=== PATIENT | female | born 2000 | race Caucasian/White ===

== ENCOUNTER 2022-09-23 14:57 | Outpatient (CLI) | payer OTHER | END 2022-09-23 23:59 | disposition critical access hospital (66) | LOC: EMS 14:57 | DX: R45.851 Suicidal ideations (principal) | CPT/HCPCS: A0425; A0429 ==

== ENCOUNTER 2022-09-23 15:49 | Emergency (ER) | payer OTHER ==
--- NOTE | 2022-09-23 15:57 | ED Physician Documentation ---
History of Present Illness - Stated complaint Stated Complaint: SI - History obtained from History obtained from: Patient - Additonal information Additional information: 21-year-old history of depression anxiety, takes occasional Xanax for same, otherwise not taking any medications. No history of drug or alcohol use. Her is out of town on deployments and she is feeling very anxious and depressed. She had some thoughts of overdosing on all sleeping pills. Currently not suicidal. PD PAST MEDICAL HISTORY - Present Medications Home Medications: Ambulatory Orders Medication Instructions Recorded Confirmed Alprazolam [Xanax] 1 mg PO DAILY PRN 09/23/22 09/23/22 - Allergies Allergies/Adverse Reactions: Allergies Allergy/AdvReac Type Severity Reaction Status Date / Time No Known Drug Allergies Allergy Verified 09/23/22 16:06 PD ED PE NORMAL - Vitals Vital signs reviewed: Yes - General General: Alert and oriented X 3, No acute distress - HEENT HEENT: PERRL, EOMI - Neck Neck: Supple, no meningeal sign, No bony TTP - Cardiac Cardiac: RRR, No murmur - Respiratory Respiratory: No respiratory distress, Clear bilaterally - Abdomen Abdomen: Non tender - Derm Derm: No rash - Neuro Neuro: Alert and oriented X 3, Normal speech Eye Opening: Spontaneous Motor: Obeys Commands Verbal: Oriented GCS Score: 15 - Psych Psych: Normal mood, Normal affect Results - Vitals Vitals: Vital Signs - 24 hr 09/23/22 16:01 Temperature 36.6 C Heart Rate 82 Respiratory 16 Rate Blood Pressure 121/72 O2 Saturation 100 Oxygen O2 Source Room air - Labs Labs: Laboratory Tests 09/23/22 09/23/22 09/23/22 16:27 16:28 16:28 WBC 6.7 RBC 4.76 Hgb 14.7 Hct 44.7 MCV 93.9 MCH 30.9 MCHC 32.9 RDW 12.4 Plt Count 165 MPV 10.7 Neut # (Auto) 4.2 Lymph # (Auto) 2.0 [place] # (Auto) 0.4 Eos # (Auto) 0.1 Baso # (Auto) 0.1 Absolute Nucleated RBC 0.00 Nucleated RBC % 0.0 Sodium 139 Potassium 3.5 Chloride 103 Carbon Dioxide 26 Anion Gap 10.0 BUN 9 Creatinine 0.7 Estimated GFR (MDRD) 105 Glucose 87 Calcium 9.4 Total Bilirubin 1.2 H AST 23 ALT 15 Alkaline Phosphatase 37 L Total Protein 7.8 Albumin 4.5 Globulin 3.3 Albumin/Globulin Ratio 1.4 Lipase 34 TSH Urine Color YELLOW Urine Clarity CLEAR Urine pH 7.0 Ur Specific Bard 1.010 Urine Protein NEGATIVE Urine Glucose (UA) NEGATIVE Urine Ketones NEGATIVE Urine Occult Blood NEGATIVE Urine Nitrite NEGATIVE Urine Bilirubin NEGATIVE Urine Urobilinogen 0.2 (NORMAL) Ur Leukocyte Esterase NEGATIVE Ur Microscopic Review NOT INDICATED Urine Culture Comments NOT INDICATED Urine HCG, Qual NEGATIVE Salicylates < 6.0 Urine Opiates Screen NEGATIVE Ur Oxycodone Screen NEGATIVE Urine Methadone Screen NEGATIVE Ur Propoxyphene Screen NEGATIVE Acetaminophen < 10 L Ur Barbiturates Screen NEGATIVE Ur Tricyclics Screen NEGATIVE Ur Phencyclidine Scrn NEGATIVE Ur Amphetamine Screen NEGATIVE U Methamphetamines Scrn NEGATIVE U Benzodiazepines Scrn POSITIVE H Urine Cocaine Screen NEGATIVE U Cannabinoids Screen NEGATIVE Ethyl Alcohol < 5.0 SARS-CoV-2 (PCR) 09/23/22 09/23/22 16:28 16:30 WBC RBC Hgb Hct MCV MCH MCHC RDW Plt Count MPV Neut # (Auto) Lymph # (Auto) [place] # (Auto) Eos # (Auto) Baso # (Auto) Absolute Nucleated RBC Nucleated RBC % Sodium Potassium Chloride Carbon Dioxide Anion Gap BUN Creatinine Estimated GFR (MDRD) Glucose Calcium Total Bilirubin AST ALT Alkaline Phosphatase Total Protein Albumin Globulin Albumin/Globulin Ratio Lipase TSH 0.75 Urine Color Urine Clarity Urine pH Ur Specific Bard Urine Protein Urine Glucose (UA) Urine Ketones Urine Occult Blood Urine Nitrite Urine Bilirubin Urine Urobilinogen Ur Leukocyte Esterase Ur Microscopic Review Urine Culture Comments Urine HCG, Qual Salicylates Urine Opiates Screen Ur Oxycodone Screen Urine Methadone Screen Ur Propoxyphene Screen Acetaminophen Ur Barbiturates Screen Ur Tricyclics Screen Ur Phencyclidine Scrn Ur Amphetamine Screen U Methamphetamines Scrn U Benzodiazepines Scrn Urine Cocaine Screen U Cannabinoids Screen Ethyl Alcohol SARS-CoV-2 (PCR) NOT DETECTED PD Medical Decision Making - ED course Complexity details: reviewed results (CBC reviewed and normal. CMP reviewed and unremarkable. Urinalysis normal. Tylenol, aspirin, and alcohol levels normal. Urine tox positive for benzodiazepines, not unexpected as she takes Xanax. TSH reviewed and normal. COVID test negative.) ED course: 21-year-old woman presents voluntarily with suicidal ideation. Seen by social work and accepted to [facility]. She will be going tomorrow morning. She is medically stable for psychiatric transfer. Cobras were completed. Departure - Departure Disposition: 65 Psych Hosp/Unit DC/Xfer Clinical Impression: Depressive disorder, Suicidal ideation Condition: Stable
[2022-09-23 16:32] LABS: MUDS CUTOFF CONCENTRATIONS CUTOFF CONC BELOW:
[2022-09-23 16:34] LABS: BASOPHILS # (AUTO) 0.1 10^3/uL (0.0-0.1); BASOPHILS % (AUTO) 0.7 %; EOSINOPHILS # (AUTO) 0.1 10^3/uL (0.0-0.7); EOSINOPHILS % (AUTO) 1.3 %; HCT - HEMATOCRIT 44.7 % (37.0-47.0); HGB - HEMOGLOBIN 14.7 g/dL (12.0-16.0); LYMPHOCYTES % (AUTO) 29.5 %; MEAN CORPUSCULAR HEMOGLOBIN 30.9 pg (27.0-31.0); MEAN CORPUSCULAR HGB CONC 32.9 g/dL (32.0-36.0); MEAN CORPUSCULAR VOLUME 93.9 fL (81.0-99.0); MEAN PLATELET VOLUME 10.7 fL (7.9-10.8); MONOCYTES # (AUTO) 0.4 10^3/uL (0.0-1.0); MONOCYTES % (AUTO) 5.7 %; NEUTROPHILS # (AUTO) 4.2 10^3/uL (1.5-6.6); NEUTROPHILS % (AUTO) 62.7 %; PLT - PLATELET COUNT 165 10^3/uL (130-450); RED BLOOD COUNT 4.76 10^6/uL (4.20-5.40); RED CELL DISTRIBUTION WIDTH 12.4 % (12.0-15.0); WHITE BLOOD COUNT 6.7 x10^3/uL (4.8-10.8)
[2022-09-23 16:36] LABS: BILIRUBIN,URINE NEGATIVE (NEGATIVE); GLUCOSE, URINE (UA) NEGATIVE (NEGATIVE); KETONES,URINE (UA) NEGATIVE (NEGATIVE); LEUKOCYTE ESTERASE, URINE NEGATIVE (NEGATIVE); NITRITE,URINE NEGATIVE (NEGATIVE); OCCULT BLOOD,URINE NEGATIVE (NEGATIVE); PROTEIN,URINE NEGATIVE (NEGATIVE); UROBILINOGEN,URINE 0.2 (NORMAL) E.U./dL (NORMAL)
[2022-09-23 16:38] LABS: CLARITY,URINE CLEAR (CLEAR); HCG UR QUAL NEGATIVE
[2022-09-23 16:48] LABS: AMPHETAMINE SCREEN,URINE NEGATIVE (NEGATIVE); BARBITURATE SCREEN,UR NEGATIVE (NEGATIVE); BENZODIAZEPINES SCREEN, URINE POSITIVE (NEGATIVE); COCAINE SCREEN URINE NEGATIVE (NEGATIVE); METHADONE SCREEN, URINE NEGATIVE (NEGATIVE); METHAMPHETAMINES SCREEN, URINE NEGATIVE (NEGATIVE); OPIATE SCREEN, URINE NEGATIVE (NEGATIVE); OXYCODONE SCREEN, URINE NEGATIVE (NEGATIVE); PROPOXYPHENE SCREEN, URINE NEGATIVE (NEGATIVE); THC CANNABINOID SCREEN, URINE NEGATIVE (NEGATIVE); TRICYCLIC ANTIDEPRESSANT,URINE NEGATIVE (NEGATIVE)
[2022-09-23 16:54] LABS: ACETAMINOPHEN < 10 ug/mL (10-30); ALBUMIN 4.5 g/dL (3.2-5.5); ALBUMIN/GLOBULIN RATIO 1.4 (1.0-2.2); ALKALINE PHOSPHATASE 37 IU/L (42-121); ALT ALANINE AMINOTRANSFERASE 15 IU/L (10-60); AST ASPARTATE AMINOTRANSFERASE 23 IU/L (10-42); BILIRUBIN,TOTAL 1.2 mg/dL (0.2-1.0); BUN - BLOOD UREA NITROGEN 9 mg/dL (6-20); CALCIUM 9.4 mg/dL (8.5-10.3); CARBON DIOXIDE - CO2 26 mmol/L (21-32); CHLORIDE 103 mmol/L (101-111); CREATININE 0.7 mg/dL (0.4-1.0); ETOH - ETHANOL < 5.0 mg/dL; GFR - MDRD 105 (>89); GLUCOSE 87 mg/dL (70-100); LIPASE 34 U/L (22-51); POTASSIUM 3.5 mmol/L (3.5-5.0); SALICYLATE < 6.0 mg/dL; SODIUM 139 mmol/L (135-145); TOTAL PROTEIN 7.8 g/dL (6.7-8.2)
[2022-09-23] MEDS ORDERED: IBUPROFEN 600 MG TABLET PO STA (18:53)
[2022-09-23] MEDS ORDERED: ACETAMINOPHEN 325 MG TABLET PO STA (23:49)
[2022-09-24 15:07] VITALS: BP 102/65
== END 2022-09-24 15:15 ==
LOC: ED 15:49
DX: F32.A Depression, unspecified (principal); R45.851 Suicidal ideations; Z20.822 Contact with and (suspected) exposure to COVID-19
CPT/HCPCS: 36415; 80053; 80306; 80307; 80320; 80329; 81003; 81025; 83690; 84443; 85025; 87635; 99285; A9270; 81001; 87086

== ENCOUNTER 2022-11-13 13:48 | Emergency (ER) | payer OTHER ==
[2022-11-13 14:07] VITALS: BP 133/74
== END 2022-11-13 15:58 | disposition left against medical advice (07) ==
LOC: ED 13:48
DX: N93.9 Abnormal uterine and vaginal bleeding, unspecified (principal)

== ENCOUNTER 2023-02-20 12:54 | Outpatient (CLI) | payer OTHER ==
--- NOTE | 2023-02-20 13:52 | Ultrasound Report ---
PROCEDURE: Pelvic w/Transvaginal INDICATIONS: IUD, PELVIC PAIN, HEAVY MENTRUATION, DEEP DYSPAREU TECHNIQUE: Real-time scanning was performed of the pelvic organs, with image documentation. Unable to perform tr ansvaginal component of this examination. COMPARISON: None. FINDINGS: Uterus: Uterus is anteverted and normal in size at 8.1 x 4.0 x 6.3 cm. The myometrium is homogeneou s. The endometrium measures 12 mm in combined thickness. An IUD is visualized within the endometria l cavity. Ovaries: The right ovary measures 2.8 x 1.7 x 2.1 cm, with a calculated ovarian volume of 5.2 cc. T he left ovary measures 4.1 x 3.2 x 2.6 cm, with a calculated ovarian volume of 17.5 cc. There are 2 s imple cyst in the left ovary with one measuring 2.0 x 2.4 x 2.7 cm and the second measuring 2.4 x 1.3 x 1.9 cm. The ovaries have a normal sonographic appearance. Less than 12 follicles can be seen in e ach ovary. No adnexal masses are seen. No cystic lesions measuring greater than 3 cm. Other: No pathologic free abdominal or pelvic fluid. IMPRESSION: IUD in place within the endometrial cavity. Otherwise, unremarkable sonographic evaluation of the pelvis. No acute sonographic abnormality seen. Reviewed by: Anil Chua MD on 02/20/2023 12:50 PM OCTAVIO Approved by: Anil Chua MD on 02/20/2023 12:50 PM OCTAVIO Station ID: [id number]
== END 2023-02-20 12:55 | disposition home or self-care (01) ==
LOC: DI 12:54
PROVIDERS: ATTEND Nurse Practitioner
DX: R10.2 Pelvic and perineal pain (principal); Z97.5 Presence of (intrauterine) contraceptive device; N92.0 Excessive and frequent menstruation with regular cycle; N94.12 Deep dyspareunia; M54.50 Low back pain, unspecified

== ENCOUNTER 2023-02-24 08:00 | Outpatient (CLI) | payer OTHER ==
[2023-02-24 20:37] LABS: BACTERIAL VAGINOSIS DNA NEGATIVE (NEGATIVE); CANDIDA GROUP DNA NEGATIVE (NEGATIVE); CANDIDA KRUSEI DNA NEGATIVE (NEGATIVE); TRICHOMONAS VAGINALIS DNA NEGATIVE (NEGATIVE)
[2023-02-24 20:38] LABS: CANDIDA GLABRATA DNA NEGATIVE (NEGATIVE)
[2023-02-24 22:00] LABS: CHLAMYDIA TRACHOMATIS DNA NEGATIVE (NEGATIVE); NEISSERIA GONORRHOEAE DNA NEGATIVE (NEGATIVE)
== END 2023-02-24 23:59 | disposition home or self-care (01) ==
LOC: LAB.WC 08:00
PROVIDERS: ATTEND Nurse Practitioner
DX: R10.2 Pelvic and perineal pain (principal); N92.0 Excessive and frequent menstruation with regular cycle; N94.12 Deep dyspareunia
CPT/HCPCS: 81514; 81599; 87491; 87591; 87661

== ENCOUNTER 2023-02-24 14:46 | Outpatient (CLI) | payer OTHER ==
--- NOTE | 2023-02-24 15:47 | CT Report ---
PROCEDURE: ABDOMEN/PELVIS WO INDICATIONS: PRESENCE OF IUD,HEAVY MENSTRUATION,PELVIC PAIN TECHNIQUE: A CT scan of the abdomen and pelvis was performed without the use of intravenous contrast. Images we re recorded and evaluated at appropriate window settings. Reformats: coronal and sagittal. For radiat ion dose reduction, the following was used: automated exposure control, adjustment of mA and/or kV ac cording to patient size. COMPARISON: None. FINDINGS: Image quality: Excellent. Lung bases and heart: Unremarkable. Liver: No solid mass. Gallbladder and biliary tree: No radiopaque stones or wall thickening. No biliary dilation. Spleen: No splenomegaly. Pancreas: No pancreatic ductal dilation. Adrenals: No adrenal nodule. Kidneys and ureters: No hydronephrosis. No renal cystic lesion which requires follow up. No solid mas s. Bowel and peritoneum: No bowel distension. No pathologic free fluid. Lymph nodes: No central or retroperitoneal adenopathy. Vessels: No infrarenal aortic aneurysm. PELVIS Reproductive organs: IUD appears appropriately positioned within the endometrial cavity. Bladder: No wall thickness, accounting for underdistention. Pelvic lymph nodes: No pelvic adenopathy by size criteria. Bones: No aggressive osseous abnormality. Other: No significant ventral or inguinal hernia. IMPRESSION: No findings to explain the patient's pelvic pain. IUD appears appropriately positioned within the howard tral uterus. Reviewed by: Pino Larson on 02/24/2023 3:45 PM PDT Approved by: Pino Larson on 02/24/2023 3:45 PM PDT Station ID: [id number]
== END 2023-02-24 14:47 | disposition home or self-care (01) ==
LOC: DI 14:46
PROVIDERS: ATTEND Nurse Practitioner
DX: N92.0 Excessive and frequent menstruation with regular cycle (principal); R10.2 Pelvic and perineal pain; R10.9 Unspecified abdominal pain; Z97.5 Presence of (intrauterine) contraceptive device; N94.12 Deep dyspareunia
CPT/HCPCS: 81514; 81599; 87491; 87591; 87661

== ENCOUNTER 2023-03-01 00:11 | Emergency (ER) | payer OTHER ==
--- NOTE | 2023-03-01 00:23 | ED Physician Documentation ---
PD HPI NVD - Stated complaint Stated Complaint: NAUSEA/EPIGASTRIC PX - Chief complaint Chief Complaint: Abd Pain - History obtained from History obtained from: Patient - Additonal information Additional information: HPI from patient. 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 The patient had just taken her nighttime medications with water. Pain is worse with deep breath in/inspiration. No ameliorating factors. Other symptoms include nausea and vomiting, with bright red blood in initial emesis, with decreasing amounts with subsequent episodes; no blood clots noted per patient. She has h/o GERD but does not feel tonight's symptoms have any similarity to her previous GERD-related symptoms. She has had recent tests in outpatient setting (over past week) for pelvic pain/vaginal bleeding; she says tonight's symptoms are unrelated to what led to the outpatient testing (pelvic US, CT A/P). Review of Systems Constitutional: reports: Reviewed and negative Cardiac: reports: Chest pain / pressure. denies: Palpitations, Pedal edema, Calf pain Respiratory: reports: Dyspnea (waxing and waning in proportion to pain). denies: Cough, Hemoptysis, Wheezing GI: reports: Nausea, Vomiting, Hematemesis. denies: Abdominal Pain PD PAST MEDICAL HISTORY - Past Medical History Past Medical History: Yes Psych: Depression, Anxiety, Bipolar disorder, Post traumatic stress disorder, Other Musculoskeletal: Scoliosis - Past Surgical History Past Surgical History: No - Present Medications Home Medications: Ambulatory Orders Medication Instructions Recorded Confirmed Sertraline [Zoloft] 25 mg PO DAILY 11/13/22 03/01/23 hydrOXYzine pamoate [Hydroxyzine 50 mg PO DAILY PRN 11/13/22 03/01/23 Pamoate] Lidocaine Viscous 2% [Xylocaine 10 ml MM Q4H PRN #100 ml 03/01/23 Viscous 2%] Norelgestromin/Ethin.estradiol 1 each TD 03/01/23 [Zafemy 150-35 Mcg/Day Patch] QUEtiapine [SEROquel] 25 mg PO QPM 03/01/23 03/01/23 traMADol [Ultram] 50 - 100 mg PO Q6H PRN #20 tablet 03/01/23 - Allergies Allergies/Adverse Reactions: Allergies Allergy/AdvReac Type Severity Reaction Status Date / Time No Known Drug Allergies Allergy Verified 03/01/23 00:21 - Social History Does the pt smoke?: No Smoking Status: Never smoker Does the pt drink ETOH?: No Does the pt have substance abuse?: No - Immunizations Immunizations are current?: Yes - POLST Patient has POLST: No PD ED PE NORMAL - Vitals Vital signs reviewed: Yes - General General: Alert and oriented X 3, Well developed/nourished, Other (appears uncomfortable (painful distress) at times) - Cardiac Cardiac: RRR, No murmur, No gallop, No rub - Respiratory Respiratory: No respiratory distress, Clear bilaterally - Abdomen Abdomen: Soft, Non tender, Non distended - Extremities Extremities: No edema Results - Vitals Vitals: Oxygen O2 Source Room air - Labs Labs: Laboratory Tests 03/01/23 03/01/23 01:16 01:16 WBC 5.6 RBC 4.40 Hgb 13.6 Hct 41.4 MCV 94.1 MCH 30.9 MCHC 32.9 RDW 12.0 Plt Count 164 MPV 10.4 Neut # (Auto) 2.9 Lymph # (Auto) 2.2 [place] # (Auto) 0.4 Eos # (Auto) 0.2 Baso # (Auto) 0.0 Absolute Nucleated RBC 0.00 Nucleated RBC % 0.0 Sodium 136 Potassium 3.7 Chloride 106 Carbon Dioxide 28 Anion Gap 2.0 L BUN 9 Creatinine 0.8 Estimated GFR (MDRD) 89 Glucose 72 L Calcium 9.2 Total Bilirubin 0.5 AST 20 ALT 11 Alkaline Phosphatase 33 L Total Protein 6.6 Albumin 4.2 Globulin 2.4 Albumin/Globulin Ratio 1.8 Lipase 45 - Rads (name of study) CTA chest Relevant Findings:: Prelim report reviewed, See rad report PD Medical Decision Making - ED course Complexity details: reviewed old records (I reviewed results of recent outpatient testing (pelvic US, CT A/P, BV/STD panel); no remarkable nor di agnostic findings on these tests), reviewed results, re-evaluated patient, considered differential, d/w patient ED course: No concerning nor diagnostic findings on tonight's tests including CBC, ER abdominal panel, and CTA chest. Though unlikely, diagnoses considered include PE, aortic dissection, mitch-mcfarland tear, boerhaave's syndrome; CTA chest results strongly suggest against these diagnoses at this time. Timing of symptom onset would be c/w food bolus impaction but given that she had just taken her medications (albeit a number of medications at once), this would be very unlikely to cause esophageal obstruction. Timing of onset is too rapid to suggest effect and/or side effect of medications. The cause of patient's symptoms is not apparent at this time. She is given 1 liter NS , 4mg IV zofran, 1 mg IV dilaudid, and 40mg IVP protonix. On reevaluation, she is sleeping, easily awoken to verbal. She reports excellent symptom relief with these interventions. Results d/w patient. She is given tramadol followed by PO viscous lidocaine/maalox prior to discharge for mild, residual discomfort. Rx for tramadol and viscous lidocaine e-prescribed. Return precautions reviewed. Departure - Departure Disposition: 01 Home, Self Care Clinical Impression: Vomiting Qualifiers: Vomiting type: hematemesis Nausea presence: with nausea Qualified Code(s): K92.0 - Hematemesis Condition: Good Instructions: ED Bleed UGI Stable Follow-Up: Papito Renteria MD [Primary Care Provider] - Prescriptions: traMADol [Ultram] 50 - 100 mg PO Q6H PRN #20 tablet PRN Reason: Pain >8 Lidocaine Viscous 2% [Xylocaine Viscous 2%] 10 ml MM Q4H PRN #100 ml PRN Reason: Abdominal Pain Comments: There were no concerning nor diagnostic findings on tonight's tests, including the blood tests and the CT scan of your chest. The cause of your symptoms is not apparent at this time. Possible causes of your symptoms that would not show on ER tests include gastritis (inflammation of the lining of the stomach), gastric (stomach) ulcer, esophagitis (inflammation of the esophagus). Follow up with your primary care provider, next available appointment, for reevaluation. Further tests might be needed (such as upper endoscopy), particularly if your symptoms persist or are recurrent. I have sent I have electronically submitted prescriptions for tramadol (opiate/narcotic pain medication) and viscous lidocaine (numbing medication for the gastrointestinal tract) to the [facility] in [place]. You should take omeprazole once per day for two weeks. This is an [id number]-uosqbks medication (no prescription is necessary). I am prescribing a short course of narcotic pain medication for you. These are potentially dangerous and addictive medications that should be used carefully. These medications may constipate you. Take an ecfd-vpc-xrradzc stool softener (docusate) twice daily with plenty of water while taking these medications. If you go 24 hours without a bowel movement, take [id number] miralax, per package instructions. Do not drink or drive while taking these medications. If you received narcotic or sedating medications while in the emergency department, do not drive for 24 hours. Store this medication in a safe, secure place and out of reach of children. It is a violation of federal law to give or sell this medication to another person or to use in a manner other than prescribed. The ED will not refill narcotic prescriptions, including prescriptions lost or stolen. To dispose of unwanted medications: 1. [facility] at [address] in [place] has a medication drop box. They accept prescription medications (in pill form) Wednesday through Wednesday 9:00 a.m. to 5:00 p.m. 2. The [facility] accepts prescription medications (in pill form only) for disposal year round. Call for more information. 3. Contact the [facility] for the next [facility] sponsored prescription drug collection event. , [phone], or [phone] Forms: PCP List Discharge Date/Time: 03/01/23 04:11
[2023-03-01] MEDS ORDERED: SODIUM CHLORIDE 0.9% 1,000 ML IV STA (01:03)
[2023-03-01] MEDS ORDERED: HYDROmorphone 1 MG/ML CARPUJECT IVP STA (01:03)
[2023-03-01] MEDS ORDERED: ONDANSETRON 4 MG/2 ML VIAL IVP STA (01:03)
[2023-03-01] MEDS ORDERED: iohexoL-300 100 ML VIAL ONE (01:14)
[2023-03-01 01:21] LABS: BASOPHILS % (AUTO) 0.5 %; EOSINOPHILS # (AUTO) 0.2 10^3/uL (0.0-0.7); EOSINOPHILS % (AUTO) 3.9 %; HCT - HEMATOCRIT 41.4 % (37.0-47.0); HGB - HEMOGLOBIN 13.6 g/dL (12.0-16.0); LYMPHOCYTES # (AUTO) 2.2 10^3/uL (1.5-3.5); LYMPHOCYTES % (AUTO) 38.5 %; MEAN CORPUSCULAR HEMOGLOBIN 30.9 pg (27.0-31.0); MEAN CORPUSCULAR HGB CONC 32.9 g/dL (32.0-36.0); MEAN CORPUSCULAR VOLUME 94.1 fL (81.0-99.0); MEAN PLATELET VOLUME 10.4 fL (7.9-10.8); MONOCYTES # (AUTO) 0.4 10^3/uL (0.0-1.0); MONOCYTES % (AUTO) 6.2 %; NEUTROPHILS # (AUTO) 2.9 10^3/uL (1.5-6.6); NEUTROPHILS % (AUTO) 50.5 %; PLT - PLATELET COUNT 164 10^3/uL (130-450); WHITE BLOOD COUNT 5.6 x10^3/uL (4.8-10.8)
[2023-03-01] MEDS ORDERED: PANTOPRAZOLE 40 MG VIAL IVP STA (01:28)
[2023-03-01 01:39] LABS: ALBUMIN 4.2 g/dL (3.2-5.5); ALBUMIN/GLOBULIN RATIO 1.8 (1.0-2.2); BILIRUBIN,TOTAL 0.5 mg/dL (0.2-1.0); CALCIUM 9.2 mg/dL (8.5-10.3); CREATININE 0.8 mg/dL (0.6-1.3); POTASSIUM 3.7 mmol/L (3.5-4.5); TOTAL PROTEIN 6.6 g/dL (6.4-8.9)
[2023-03-01] MEDS ORDERED: iohexoL-300 100 ML VIAL IVP ONE (02:08)
[2023-03-01] MEDS ORDERED: LIDOCAINE VISCOUS 2% 15 ML ORAL SYRINGE MM STA (03:48)
[2023-03-01] MEDS ORDERED: traMADol 50 MG TABLET PO STA (03:48)
[2023-03-01] MEDS ORDERED: MAG HYDROX/AL HYDROX/SIMETH 30 ML UDC PO STA (03:48)
[2023-03-01 04:15] VITALS: BP 118/62
--- NOTE | 2023-03-01 08:17 | CT Report ---
PROCEDURE: ANGIO CHEST W/WO INDICATIONS: pleuritic chest pain, dyspnea CONTRAST: 100 ML OMNI 300 TECHNIQUE: After the administration of intravenous contrast, 2 mm axial images were acquired from the pulmonary apices to the posterior costophrenic angles during the arterial phase. In addition, 1 mm lung kernel and 5 mm soft tissue kernel reconstructions were performed. 3-dimensional coronal oblique maximum int ensity projection (MIP) reformats, 8 mm axial MIP, and 5 mm coronal and sagittal MPR reformats were t hen performed through the thorax. For radiation dose reduction, the following was used: automated exp osure control, adjustment of mA and/or kV according to patient size. COMPARISON: None FINDINGS: Image quality: Excellent. Large vessels: No filling defects within the opacified pulmonary arteries, accounting for motion and contrast timing. No evidence of acute aortic syndrome or aortic aneurysm. Lungs and pleura: No consolidation. No pleural effusions. No pneumothorax. Central and peripheral airways are normal caliber without bronchial wall thickening or bronchiectasis . No suspicious lung nodules or masses. Mediastinum: Heart size is normal. No pericardial effusion. No large vessel abnormality. Circumferent ial thickening of the esophagus throughout its course. No hilar or mediastinal adenopathy. No hiatal hernia. Chest wall and lower neck: Thyroid is unremarkable. No axillary or supraclavicular adenopathy by size . Bones: No aggressive osseous abnormality. Upper Abdomen: Unremarkable. IMPRESSION: 1. No pulmonary embolus. 2. Diffuse circumferential esophageal wall thickening may indicate esophagitis, most commonly due to reflux, also possibly due to irritation from vomiting. 3. Final interpretation concordant with preliminary report. Reviewed by: Sara Yoon MD on 03/01/2023 8:15 AM PDT Approved by: Sara Yoon MD on 03/01/2023 8:15 AM PDT Station ID: [id number]
== END 2023-03-01 04:11 | disposition home or self-care (01) ==
LOC: ED 00:11
DX: R07.9 Chest pain, unspecified (principal); K92.0 Hematemesis
CPT/HCPCS: 36415; 71275; 80053; 83690; 85025; 96374; 96375; 99284; A9270; J1170; Q9967

== ENCOUNTER 2023-03-03 22:26 | Outpatient (CLI) | payer OTHER | END 2023-03-03 23:59 | disposition critical access hospital (66) | LOC: EMS 22:26 | DX: R20.0 Anesthesia of skin (principal); G43.909 Migraine, unspecified, not intractable, without status migrainosus | CPT/HCPCS: A0425; A0429 ==

== ENCOUNTER 2023-03-03 22:54 | Emergency (ER) | payer OTHER ==
[2023-03-03] MEDS ORDERED: KETOROLAC 15 MG/ML VIAL IVP STA (22:57)
[2023-03-03] MEDS ORDERED: METOCLOPRAMIDE 10 MG/2 ML VIAL IVP STA (22:57)
[2023-03-03] MEDS ORDERED: SODIUM CHLORIDE 0.9% 1,000 ML IV STA (22:57)
[2023-03-03] MEDS ORDERED: diphenhydrAMINE INJ 50 MG/ML VIAL IVP STA (22:58)
--- NOTE | 2023-03-03 23:58 | ED Physician Documentation ---
PD HPI HEADACHE - Stated complaint Stated Complaint: PIEDRA/NUMBNESS IN LE'S - Chief complaint Chief Complaint: Neuro - History obtained from History obtained from: Patient - Additional information Additional information: 22-year-old female with history of migraine headaches presents by EMS from home for migraine headache with upper and lower extremity numbness. Patient states that the headache began earlier today and intensified. This is typical of previous migraines. She states that her migraines come out of nowhere and she does not have any known triggers. No medications taken prior to arrival Review of Systems Constitutional: denies: Fever, Chills : denies: Dysuria, Frequency Musculoskeletal: denies: Neck pain, Back pain, Extremity pain Neurologic: reports: Numbness, Headache. denies: Generalized weakness, Focal weakness, Syncope, Seizure, Head injury PD PAST MEDICAL HISTORY - Past Medical History Past Medical History: Yes Neuro: Headaches, Migraines Psych: Depression, Anxiety, Bipolar disorder, Post traumatic stress disorder, Other Musculoskeletal: Scoliosis - Past Surgical History Past Surgical History: No - Present Medications Home Medications: Ambulatory Orders Medication Instructions Recorded Confirmed Sertraline [Zoloft] 25 mg PO DAILY 11/13/22 03/01/23 hydrOXYzine pamoate [Hydroxyzine 50 mg PO DAILY PRN 11/13/22 03/01/23 Pamoate] Lidocaine Viscous 2% [Xylocaine 10 ml MM Q4H PRN #100 ml 03/01/23 Viscous 2%] Norelgestromin/Ethin.estradiol 1 each TD 03/01/23 [Zafemy 150-35 Mcg/Day Patch] QUEtiapine [SEROquel] 25 mg PO QPM 03/01/23 03/01/23 traMADol [Ultram] 50 - 100 mg PO Q6H PRN #20 tablet 03/01/23 - Allergies Allergies/Adverse Reactions: Allergies Allergy/AdvReac Type Severity Reaction Status Date / Time No Known Drug Allergies Allergy Verified 03/03/23 23:04 - Social History Does the pt smoke?: No Smoking Status: Never smoker Does the pt drink ETOH?: No Does the pt have substance abuse?: No - Immunizations Immunizations are current?: Yes - POLST Patient has POLST: No PD ED PE NORMAL - Vitals Vital signs reviewed: Yes - General General: Alert and oriented X 3, Well developed/nourished - HEENT HEENT: Atraumatic - Neck Neck: Supple, no meningeal sign - Cardiac Cardiac: RRR, Strong equal pulses - Abdomen Abdomen: Soft, Non tender, Non distended - Derm Derm: Normal color, Warm and dry, No rash - Extremities Extremities: No deformity, No tenderness to palpate, Normal ROM s pain - Neuro Neuro: Alert and oriented X 3, 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 Reports numbness in her extremities, however patient has intact sensation. Will give migraine cocktail. Patient denies possibility of . Headache and nausea resolved after migraine cocktail. Patient states she is ready to go. Discharged to her in stable condition Departure - Departure Disposition: Home, Self Care Clinical Impression: Migraine Condition: Stable Instructions: ED Headache Migraine Comments: Follow-up with your primary care physician. Make sure to stay hydrated. You may take Tylenol and Motrin at home as needed for headache. Forms: PCP List Discharge Date/Time: 03/04/23 00:47
[2023-03-04 00:01] VITALS: BP 117/66
== END 2023-03-04 00:47 | disposition home or self-care (01) ==
LOC: EDUNIT# → ED 22:54
DX: G43.909 Migraine, unspecified, not intractable, without status migrainosus (principal)
CPT/HCPCS: 96374; 96375; 99283; J1200; J2765

== ENCOUNTER 2023-10-23 15:00 | Outpatient (CLI) | payer OTHER ==
--- NOTE | 2023-10-24 12:31 | Ultrasound Report ---
PROCEDURE: Bladder INDICATIONS: PELVIC PAIN, URINARY INCONTINENCE TECHNIQUE: Real-time scanning was performed of the kidneys and bladder, with image documentation. COMPARISON: None FINDINGS: Kidneys: Not interrogated. Bladder: Pre-void bladder volume is 304.1 mL. Post-void residual is 19.9 mL. Pre-void images demon strate no intraluminal masses or stones. On pre-void images, bilateral ureteral jets are noted with color Doppler interrogation. (Of note, ureteral jets may not be detectable in up to 25% of cases due to insufficient differences in specific gravity between ureteral and bladder urine). Miscellaneous: No free pelvic fluid. IMPRESSION: Small post void residual. Reviewed by: Ghazal Carrera MD on 10/24/2023 12:29 PM PDT Approved by: Ghazal Carrera MD on 10/24/2023 12:29 PM PDT Station ID: [id number]
--- NOTE | 2023-10-24 12:32 | Ultrasound Report ---
PROCEDURE: Pelvic w/Transvaginal INDICATIONS: PELVIC PAIN, URINARY INCONTINENCE TECHNIQUE: Real-time scanning was performed of the pelvic organs, with image documentation. Additional endovagi nal scanning was necessary due to incomplete visualization of the adnexal and endometrial structures by transabdominal scanning. COMPARISON: Pelvic ultrasound dated 02/20/2023 FINDINGS: Uterus: Uterus is anteverted and normal in size at 7.2 x 3.3 x 4.7 cm. The myometrium is homogeneou s. The endometrium measures 4 mm in combined thickness. The IUD is noted within the uterine fundus where expected. Ovaries: The right ovary measures 2.1 x 1.3 x 1.3 cm, with a calculated ovarian volume of 1.9 cc. T he left ovary measures 2.7 x 1.9 x 1.7 cm, with a calculated ovarian volume of 4.6 cc. The ovaries h ave a normal sonographic appearance. Less than 12 follicles can be seen in each ovary. No adnexal m asses are seen. No cystic lesions measuring greater than 3 cm. Other: No pathologic free abdominal or pelvic fluid. IMPRESSION: IUD where expected in the uterine fundus. Otherwise unremarkable pelvic ultrasound. Reviewed by: Ghazal Carrera MD on 10/24/2023 12:31 PM PDT Approved by: Ghazal Carrera MD on 10/24/2023 12:31 PM PDT Station ID: [id number]
== END 2023-10-23 15:01 | disposition home or self-care (01) ==
LOC: DI 15:00
PROVIDERS: ATTEND Physician Assistant
DX: R10.2 Pelvic and perineal pain (principal); R32 Unspecified urinary incontinence; N93.0 Postcoital and contact bleeding; Z97.5 Presence of (intrauterine) contraceptive device

== ENCOUNTER 2024-04-11 15:30 | Outpatient (CLI) | payer OTHER | END 2024-04-11 15:45 | disposition home or self-care (01) | LOC: LAB.N 15:30 | PROVIDERS: ATTEND Family Medicine | DX: R30.0 Dysuria (principal) | CPT/HCPCS: 87086 ==